=== PATIENT | male | born 1960 | race African-American/Black ===

== ENCOUNTER → 2016-10-15 | Outpatient (CLI) | payer MEDICARE, OTHER ==
[2015-09-05 10:45] VITALS: BP 144/74
[~2016-10-15] MED LIST: ACET500T55 PO; ASPI81TA2 PO; CEFP200T PO; CHOL100013 PO; CLOZ100T7 PO; CYAN500T PO; DOXY100T PO; FLUT16SP NS; GABA-585 PO; IPRA3AMP NEB; IVAB5TAB PO; OMEP20TA PO; OXYM30SP67 NS; PRAV20TA2 PO; SERT100T PO; SITA50TA PO; VITAMIN C; VITAMIN D
--- NOTE | 2016-10-15 15:14 | CARD ---
APPROVED REPORT EXAM: Two-dimensional and M-mode echocardiogram with Doppler and color Doppler. Other Information Quality : Good INDICATION Cardiomyopathy 2D DIMENSIONS RVDd2.6 (2.9-3.5cm)Left Atrium(2D)3.4 (1.6-4.0cm) IVSd1.2 (0.7-1.1cm)Aortic Root(2D)3.0 (2.0-3.7cm) LVDd4.4 (3.9-5.9cm)LVOT Diameter2.1 (1.8-2.4cm) PWd1.4 (0.7-1.1cm)LVDs4.2 (2.5-4.0cm) FS (%) 7.5 %SV9.2 ml LVEF(%)15.0 (>50%) Mitral Valve MV E Hynvwycp26.0cm/sMV DECEL VEYP187qy MV A Fmfzvmxn48.8cm/sE/A Ratio0.9 Tricuspid Valve TR P. Exwomcfl474ke/sRAP [id number] TR Peak Gr.[id number] LEFT VENTRICLE The left ventricle is normal size. There is mild concentric left ventricular hypertrophy. The Ejectio n Fraction is 15-20%. There is severe global hypokinesis of the left ventricle. Transmitral Doppler f low pattern is Grade I-abnormal relaxation pattern. RIGHT VENTRICLE The right ventricle is normal size. The right ventricular systolic function is normal. There is a pac emaker lead in the right ventricle. ATRIA The left atrium size is normal. The right atrium size is normal. A pacemaker is seen in the right atr ium consistent with history. The interatrial septum is intact with no evidence for an atrial septal d efect or patent foramen ovale as noted on 2-D or Doppler imaging. AORTIC VALVE The aortic valve is normal in structure and function. Doppler and Color Flow revealed no significant aortic regurgitation. There is no significant aortic valvular stenosis. MITRAL VALVE The mitral valve is calcified but opens well. There is no evidence of mitral valve prolapse. There is no mitral valve stenosis. Doppler and Color-flow revealed mild mitral regurgitation. TRICUSPID VALVE The tricuspid valve is normal in structure and function. Doppler and Color Flow revealed trace tricus pid regurgitation. The PA pressure was estimated at 24 mmHg. There is no tricuspid valve stenosis. PULMONIC VALVE Doppler and Color Flow revealed mild pulmonic valvular regurgitation. There is no pulmonic valvular s tenosis. GREAT VESSELS The aortic root is normal in size. The IVC is normal in size and collapses >50% with inspiration. PERICARDIAL EFFUSION There is no evidence of significant pericardial effusion. Critical Notification Critical Value: No <Conclusion> The Ejection Fraction is 30%. There is moderate to severe global hypokinesis of the left ventricle. There is a pacemaker lead in the right ventricle.
== END | disposition home or self-care (01) ==
LOC: ECHO 12:55
PROVIDERS: ATTEND Internal Medicine Cardiovascular Disease
DX: I42.9 Cardiomyopathy, unspecified (principal)
CPT/HCPCS: 93306

== ENCOUNTER → 2020-12-15 | Outpatient (CLI) | payer OTHER ==
[2015-09-05 10:45] VITALS: BP 144/74
[~2020-12-15] MED LIST changes: -ACET500T55 PO; +ACET500T56 PO; +ASPI-630 PO; -ASPI81TA2 PO; -CYAN500T PO; +CYAN500T7 PO; +DONE10TA7 PO; -IPRA3AMP NEB; +IPRA3AMP29 NEB; +LISI2.5T PO; +MEMA10TA PO; +MULT-240 PO; -OMEP20TA PO; +OMEP20TA8 PO
== END ==
LOC: LAB 09:03
PROVIDERS: ATTEND Internal Medicine Cardiovascular Disease
DX: Z01.812 Encounter for preprocedural laboratory examination (principal); Z20.822 Contact with and (suspected) exposure to COVID-19
CPT/HCPCS: U0003

== ENCOUNTER 2020-12-20 06:41 | Outpatient (CLI) | payer OTHER ==
[~2020-12-20] VITALS: Ht 188 cm; Wt 92.1 kg
[~2020-12-20 06:41] MED LIST changes: -DONE10TA7 PO; -LISI2.5T PO; -MEMA10TA PO; -MULT-240 PO
[2020-12-20 07:52] VITALS: BP 120/79
[2020-12-20] MEDS ORDERED: LIDOCAINE 2%/EPI 1:100,000 20 ML VIAL. ONE (07:54)
[2020-12-20 08:00] LABS: HEMATOCRIT 37.1 % (39.0-53.0); HEMOGLOBIN 12.4 g/dL (13.0-17.5); RED BLOOD COUNT 4.4 x10^6/uL (4.30-5.70); RED CELL DISTRIBUTION WIDTH 14.7 % (11.5-14.5); WHITE BLOOD COUNT 7.7 x10^3/uL (4.0-11.0)
[2020-12-20 08:08] LABS: CALCIUM 8.8 mg/dL (8.5-10.1); CREATININE 1.2 mg/dL (0.7-1.3); POTASSIUM 3.8 mmol/L (3.5-5.1)
[2020-12-20] MEDS ORDERED: MULT-240 PO (08:19)
[2020-12-20] MEDS ORDERED: DONE10TA7 PO (08:19)
[2020-12-20] MEDS ORDERED: MEMA10TA PO (08:19)
[2020-12-20] MEDS ORDERED: LISI2.5T PO (08:19)
[2020-12-20] MEDS ORDERED: BACITRACIN 50,000 UNIT in IV NORMAL SALINE 250ML 250 ML IRR ONE (08:30)
[2020-12-20] MEDS ORDERED: MIDAZOLAM HCL/PF 5 MG/5 ML VIAL. ONE (08:40)
[2020-12-20] MEDS ORDERED: fentaNYL PF VIAL 100 MCG/2 ML VIAL ONE (08:40)
[2020-12-20] MEDS ORDERED: fentaNYL PF VIAL 100 MCG/2 ML VIAL IV ONE (09:30)
[2020-12-20] MEDS ORDERED: MIDAZOLAM HCL/PF 5 MG/5 ML VIAL. IV ONE (09:30)
[2020-12-20] MEDS ORDERED: LIDOCAINE 2%/EPI 1:100,000 20 ML VIAL. IJ ONE (09:30)
[2020-12-20 09:46] VITALS: BP 105/63
[2020-12-20 09:50] VITALS: BP 110/66
--- NOTE | 2020-12-20 09:59 | CARD ---
MR#: [id number] Date of Study: 12/20/2020 Ordering Physician: MADDY MARTINEZ, Referring Physician: Skylar PAYAN: Shirley Adames RT(R) APPROVED REPORT EXAM Medtronic biventricular implantable cardioverter defibrillator (BiV ICD/CHIEF GREEN OFFICER-D) generator change MODERATE SEDATION TIME: 34 MINUTES FLUORO TIME: 0.2 MIN DOSE: 0.11 INDICATIONS Nonischemic cardiomyopathy, chronic systolic heart failure s/p biventricular ICD/CHIEF GREEN OFFICER-D implantation i n the past presenting with battery depletion IMPLANTED DEVICES After explaining the risk, benefits and alternative options, informed consent was obtained for mignon slater. Patient was brought to the cardiac [employer] [facility] and his left chest and shoulder were prepped and drap ed in the usual fashion. 30 cc of 2% lidocaine was infiltrated into the skin and subcutaneous tissue s for local anesthesia. An incision was made over the previous scar and using blunt dissection and c autery, the pocket was opened, capsule exposed and opened and the previously placed generator removed . The leads were detached from the generator, interrogated, found to be functioning well and reattac hed to a new Medtronic biventricular ICD/CHIEF GREEN OFFICER-D generator model [id number], serial number [id number]. Th is was placed back in the pocket. Since there was diffuse oozing in the pocket, we infiltrated the p ocket with D-Stat. The pocket was then closed in 3 layers. Hemostasis was secured. PROCEDURE After explaining the risks, benefits, and alternative options, informed consent was obtained from the patient. IV conscious sedation was used throughout procedure with appropriate monitoring and was performed in the presence of a registered nurse who was an independent trained observer other than the physician p erforming the procedure. Specimen(s) Removed: No Estimated Blood loss: 10 cc's. CONCLUSION Successful Medtronic biventricular ICD/CHIEF GREEN OFFICER-D generator change for battery depletion Signed by : Maddy Martinez, Electronically Approved : 12/20/2020 09:58:16
--- NOTE | 2020-12-20 10:03 | PDOC ---
MODERATE SEDATION ASSESSMENT RISKS/ALTERNATIVES Risks/Alternatives Risks and alternatives of this type of sedation and procedure discussed with: RISK/ALTERNATIVES: Patient H & P ON CHART H & P H & P on chart and reviewed for co-morbid conditions and appropriate labs. H&P ON CHART: Yes STATUS PREG STATUS ASSESSED: N/A MEDS/ALLERGIES REVIEWED Meds/Allergies Reviewed Medications and Allergies including time and route of recently administered narcotics and sedatives. MEDS/ALLERGIES REVIEWED: Yes ASA RATING ASA RATING: II AIRWAY ASSESSMENT Airway Assessment Airway patency, oral function limitations, presence of caps, crowns, dentures, partials, and ability to extend neck assessed. AIRWAY ASSESSMENT: Yes MALLAMPATI SCORE MALLAMPATI SCORE: II PRE-SEDATION ASSESSMENT PRE-SEDATION ASSESSMENT: Yes MADDY MARTINEZ MD Dec 20, 2020 10:03
[2020-12-20 10:05] VITALS: BP_SYST 105; BP_DIAS 65; BP_DIAS 72
[2020-12-20 10:20] VITALS: BP 125/71
--- NOTE | 2020-12-20 11:00 | NUR ---
PIV removed, VS stable. No bleeding at site. Patient given instructions on site care, sedation, PPM gen change. at bedside when instructions reviewed by RN. No questions at time of d/c. Patient's belongings taken w/ him at time of d/c. Ride will be arriving shortly. Patient and taken to outpatient entrance.
== END 2020-12-20 10:50 | disposition home or self-care (01) ==
LOC: CCL 06:41
PROVIDERS: ATTEND Internal Medicine Cardiovascular Disease
DX: Z45.02 Encounter for adjustment and management of automatic implantable cardiac defibrillator (principal); I11.0 Hypertensive heart disease with heart failure; I50.22 Chronic systolic (congestive) heart failure; E78.00 Pure hypercholesterolemia, unspecified; E11.42 Type 2 diabetes mellitus with diabetic polyneuropathy; K21.9 Gastro-esophageal reflux disease without esophagitis; F41.9 Anxiety disorder, unspecified; F32.9 Major depressive disorder, single episode, unspecified; F17.210 Nicotine dependence, cigarettes, uncomplicated; Z79.82 Long term (current) use of aspirin; Z79.84 Long term (current) use of oral hypoglycemic drugs; Z79.899 Other long term (current) drug therapy; Z98.890 Other specified postprocedural states; Z72.89 Other problems related to lifestyle; Z82.49 Family history of ischemic heart disease and other diseases of the circulatory system; Z83.3 Family history of diabetes mellitus
CPT/HCPCS: 33263; 36415; 80048; 85027; 85610; 99152; 99153; C1882; J0690; J2250; J3010; J3490; J7050; J7030